=== PATIENT | male | born 1940 | race Caucasian/White ===

== ENCOUNTER → 2017-08-25 | Day surgery (SDC) | payer MEDICARE ==
[~2017-08-25] MED LIST: Calcium Carbonate 500 MG Tab.Chew PO ONE; Propofol 200 MG/20 ML SDV IV ONE; Sodium Chloride 0.9% 500 ML IV SCH
--- NOTE | 2017-08-25 11:28 | OR ---
DATE OF OPERATION: 08/25/2017 PREOPERATIVE DIAGNOSIS: 1. DYSPEPSIA. 2. ALTERED BOWEL HABITS. POSTOPERATIVE DIAGNOSIS: 1. DYSPEPSIA. 2. ALTERED BOWEL HABITS. SURGEON: John Heredia MD PROCEDURE: 1. FULL-LENGTH EGD WITH JUNIOR. 2. FULL-LENGTH COLONOSCOPY. ANESTHESIA: SENIOR DATA WAREHOUSE ARCHITECT due to GERD, history of gastric ulcer, and chronic alcohol abuse. COMPLICATIONS: None. SPECIMEN: Antral JUNIOR. FINDINGS: 1. Full-length EGD. 2. Status post a partial gastrectomy with Billroth anastomosis. 3. Small hiatal hernia with nonobstructing Schatzki ring. 4. Full-length colonoscopy. 5. Poor bowel prep. 6. Sigmoid diverticulosis. RECOMMENDATIONS: Medical followup with Dr. Heredia in 2 weeks. INDICATIONS: The patient was in for a physical, admits to chronic dyspepsia with a history of peptic ulcer disease. He has also been having altered bowel habits in the form of diarrhea. We recommended upper and lower endoscopy. DESCRIPTION OF PROCEDURE: The patient was prepped and draped, placed in the left lateral decubitus position. A lubricated Olympus gastroscope was inserted over a bit, and easily intubated in the esophagus. Esophageal lining was benign in its entire course. The Z-line was crisp around 37 cm. Small hiatal hernia with Schatzki's ring, nonobstructing was noted. No distal esophagitis, stricturing, ulceration, or Keita's changes. The scope advanced into the stomach and the patient has a partial gastrectomy with a Billroth anastomosis. No sign of any anastomotic ulcers. The gastric lining itself is without any polyps, mass, ulceration, or bleeding sites. A CLOtest was obtained. Air was then suctioned from the stomach and the scope removed without complication. A lubricated Olympus colonoscope was then inserted and ultimately advanced to the cecum. The bowel prep was extremely poor. There was a lot of liquid particulate stool throughout the length of the colon. There were very few areas that were not stool covered. We were able to get to the cecum, irrigate, and visualize it as well as palpate and visualize the light in the right lower quadrant. Upon withdrawal, throughout the length of the colon, I could not see any definitive signs of polyps, mass, ulceration, or bleeding sites. No vascular abnormalities or signs of colitis. There were diverticula throughout the sigmoid colon. Severity was difficult to ascertain due to the amount of stool. The rectal vault appeared benign. Retroflexion showed no perianal lesions. Air was suctioned and the scope removed without complication. JONATAN/DAREN /[id number]
== END ==
LOC: CC.SDS 09:12
PROVIDERS: ATTEND Family Medicine
DX: K44.9 Diaphragmatic hernia without obstruction or gangrene (principal); K57.30 Diverticulosis of large intestine without perforation or abscess without bleeding; K22.2 Esophageal obstruction; Z90.3 Acquired absence of stomach [part of]; I10 Essential (primary) hypertension; G89.29 Other chronic pain; M54.5 Low back pain; Z87.891 Personal history of nicotine dependence; Z79.899 Other long term (current) drug therapy
CPT/HCPCS: 43235; 45378; 87081; A9270; J2704; J7040; 00740

== ENCOUNTER 2020-12-26 07:40 | Emergency (ER) | payer MEDICARE ==
[2020-12-26] MEDS ORDERED: Aspirin 81 MG Tab.Chew PO ONE (08:02)
[2020-12-26] MEDS ORDERED: Ondansetron 4 MG/2 ML SDV IVPUSH STA (08:03)
[2020-12-26] MEDS ORDERED: Morphine 2 MG/ML SYRINGE IVPUSH ONE (08:03)
--- NOTE | 2020-12-26 08:06 | EDM.PDOC ---
ED HPI GENERAL MEDICAL PROBLEM - General Chief Complaint: Chest Pain Stated Complaint: chest pain Time Seen by Provider: 12/26/20 07:52 Source of Information: Reports: Patient, Family (daughter) History Limitations: Reports: No Limitations - History of Present Illness INITIAL COMMENTS - FREE TEXT/NARRATIVE: This patient is a 80 year old male that presents to the ER with daughter at bedside. Patient reports that for the last 2 days he has had severe chest pain to the left upper chest. Patient reports he has also had shortness of breath. Patient reports that his shortness of breath is all the time, but worse when he walks, and lays flat. Daughter reports the patients hands and feet have been swelling more that past 2 days. The patient states "I think I need a stent". The patient and daughter both report the patient has not had stent history or cardiac surgeries or caths. Daughter reports patient had a cardiac stress test about 1 year ago and it was fine. Patient has history of HTN, stopped tobacco use years ago. Onset Date: 12/24/20 Duration: Day(s): (2) Location: Reports: Chest Quality: Reports: Sharp Severity: Severe Improves with: Reports: None Worsens with: Reports: None Associated Symptoms: Reports: Chest Pain, Shortness of Breath. Denies: Confusion, Cough, cough w sputum, Diaphoresis, Fever/Chills, Headaches, Loss of Appetite, Malaise, Nausea/Vomiting, Rash, Seizure, Syncope, Weakness Treatments SHOPFITTER: Reports: Other (see below) (Excedrin) - Related Data Allergies Allergy/AdvReac Type Severity Reaction Status Date / Time No Known Allergies Allergy Verified 12/26/20 09:31 Home Meds: Home Meds Iron,Carbonyl/Folic Acid/Mv-Mn [Active Fe Tablet] 1 each PO DAILY 08/24/17 [History] Lisinopril/Hydrochlorothiazide [Lisinopril-Hctz 10-12.5 mg Tab] 1 tab PO DAILY 08/24/17 [History] Multivitamin [Multi-Day Vitamins] 1 each PO DAILY 08/24/17 [History] Verapamil HCl [Verapamil Sr] 180 mg PO BID 08/24/17 [History] atenoloL [Atenolol] 100 mg PO DAILY 08/24/17 [History] Aspirin [Aspirin EC] 500 mg PO Q4HR PRN 11/21/19 [History] Calcium Carbonate [Tums] 1 each CHEW ASDIRECTED 11/21/19 [History] Fish Oil/[place]-3 Fatty Acids [Fish Oil 1,000 MG] 1,000 mg PO DAILY 11/21/19 [History] Omeprazole 20 mg PO DAILY 11/21/19 [History] Aspirin/Acetaminophen/Caffeine [Excedrin Extra Strength Caplet] 1 each PO PRN 12/26/20 [History] ED ROS GENERAL - Review of Systems Review Of Systems: See Below Constitutional: Reports: No Symptoms HEENT: Reports: No Symptoms Respiratory: Reports: Shortness of Breath. Denies: Wheezing, Pleuritic Chest Pain, Cough, Sputum, Hemoptysis Cardiovascular: Reports: Chest Pain, Dyspnea on Exertion, Orthopnea. Denies: Edema, Lightheadedness, Palpitations, Syncope Endocrine: Reports: No Symptoms GI/Abdominal: Reports: No Symptoms : Reports: No Symptoms Musculoskeletal: Reports: No Symptoms Skin: Reports: No Symptoms Neurological: Reports: No Symptoms Psychiatric: Reports: No Symptoms Hematologic/Lymphatic: Reports: No Symptoms Immunologic: Reports: No Symptoms ED EXAM, GENERAL - Physical Exam Exam: See Below Exam Limited By: No Limitations General Appearance: Alert, WD/WN, No Apparent Distress, Anxious Eye Exam: Bilateral Eye: Normal Inspection, PERRL Ears: Normal External Exam, Normal Canal, Hearing Grossly Normal, Normal TMs Ear Exam: Bilateral Ear: Auricle Normal, Canal Normal, TM normal Nose: Normal Inspection, Normal Mucosa, No Blood Throat/Mouth: Normal Inspection, Normal Lips, Normal Teeth, Normal Gums, Normal Oropharynx, Normal Voice, No Airway Compromise Head: Atraumatic, Normocephalic Neck: Normal Inspection, Supple, Non-Tender, Full Range of Motion Respiratory/Chest: No Respiratory Distress, Lungs Clear, Normal Breath Sounds, No Accessory Muscle Use, Chest Non-Tender Cardiovascular: Normal Peripheral Pulses, Regular Rate, Rhythm, No Edema, No Gallop, No JVD, No Rub, Systolic Murmur Peripheral Pulses: 2+: Radial (L), Radial (R), Posterior Tibial (L), Posterior Tibial (R) GI/Abdominal: Normal Bowel Sounds, Soft, Non-Tender, No Organomegaly, No Distention, No Mass, Pelvis Stable, Other (old surgical scar vertical) (Male) Exam: Deferred Rectal (Males) Exam: Deferred Back Exam: Normal Inspection, Full Range of Motion Extremities: Normal Range of Motion, Non-Tender, Normal Capillary Refill, Pedal Edema (+4 BLE) Neurological: Alert, Oriented, Normal Cognition, Normal Gait, No Motor/Sensory Deficits Psychiatric: Anxious Skin Exam: Warm, Dry, Intact, Normal Color, No Rash Lymphatic: No Adenopathy #1 Interpretation EKG Date: 12/26/20 Time: 07:44 Rhythm: NSR Rate (Beats/Min): 63 [place]: Normal P-Wave: Present QRS: Normal ST-T: Normal QT: Prolonged Comparison: Change From Previous EKG Course - Vital Signs Last Recorded V/S: Last Vital Signs Temp 97.9 F 12/26/20 08:00 Pulse 56 L 12/26/20 11:30 Resp 18 12/26/20 11:30 BP 150/84 H 12/26/20 11:30 Pulse Ox 98 12/26/20 11:30 - Orders/Labs/Meds Labs: Laboratory Tests 12/26/20 12/26/20 12/26/20 Range/Units 07:55 07:55 07:55 WBC 6.0 (5.0-10.0) 10^3/uL RBC 4.18 L (4.50-6.00) 10^6/uL Hgb 12.0 L (14.0-18.0) g/dL Hct 38.9 L (40.0-54.0) % MCV 93.1 (82.0-94.0) fL MCH 28.7 (27.0-32.0) pg MCHC 30.8 L (33.0-38.0) g/dL RDW Coeff of Patito 13.1 (11.0-15.0) % Plt Count 283 (150-400) 10^3/uL Neut % (Auto) 71.2 (35-85) % Lymph % (Auto) 15.9 (10-55) % [place] % (Auto) 10.4 (0-16) % Eos % (Auto) 2.2 (0-5) % Baso % (Auto) 0.3 (0-3) % Neut # (Auto) 4.24 (1.80-7.00) 10^3/uL Lymph # (Auto) 0.95 L (1.00-4.80) 10^3/uL [place] # (Auto) 0.62 (0.00-0.80) 10^3/uL Eos # (Auto) 0.13 (0.00-0.45) 10^3/uL Baso # (Auto) 0.02 10^3/uL PT 10.5 (9.7-12.3) SEC INR 0.96 (0.92-1.18) D-Dimer, Quantitative (0.00-0.50) Sodium 140 (136-145) mEq/L Potassium 2.9 L* D (3.5-5.0) mEq/L Chloride 102 (98-106) mEq/L Carbon Dioxide 36 H D (21-32) mmol/L BUN 15 D (7-18) mg/dL Creatinine 1.1 (0.7-1.3) mg/dL Est Cr Clr Drug Dosing 54.45 mL/min Estimated GFR (MDRD) > 60 (>=60) mL/min Glucose 102 H (75-99) mg/dL Calcium 8.4 (8.4-10.1) mg/dL Magnesium 2.3 (1.8-2.4) mg/dL Total Bilirubin 0.4 (0.0-1.0) mg/dL AST 32 (15-37) U/L ALT 56 (12-78) U/L Alkaline Phosphatase 124 H (46-116) U/L Lactate Dehydrogenase 240 H (100-190) U/L Creatine Kinase 261 H (35-232) U/L Troponin I 0.019 (0.00-0.06) ng/mL NT-Pro-B Natriuret Pep 1416 H (0-1000) pg/mL Total Protein 5.5 L (6.4-8.2) g/dL Albumin 2.6 L (3.4-5.0) g/dL Lipase 36 L (73-393) U/L 12/26/20 Range/Units 09:00 WBC (5.0-10.0) 10^3/uL RBC (4.50-6.00) 10^6/uL Hgb (14.0-18.0) g/dL Hct (40.0-54.0) % MCV (82.0-94.0) fL MCH (27.0-32.0) pg MCHC (33.0-38.0) g/dL RDW Coeff of Patito (11.0-15.0) % Plt Count (150-400) 10^3/uL Neut % (Auto) (35-85) % Lymph % (Auto) (10-55) % [place] % (Auto) (0-16) % Eos % (Auto) (0-5) % Baso % (Auto) (0-3) % Neut # (Auto) (1.80-7.00) 10^3/uL Lymph # (Auto) (1.00-4.80) 10^3/uL [place] # (Auto) (0.00-0.80) 10^3/uL Eos # (Auto) (0.00-0.45) 10^3/uL Baso # (Auto) 10^3/uL PT (9.7-12.3) SEC INR (0.92-1.18) D-Dimer, Quantitative 1.44 H (0.00-0.50) Sodium (136-145) mEq/L Potassium (3.5-5.0) mEq/L Chloride (98-106) mEq/L Carbon Dioxide (21-32) mmol/L BUN (7-18) mg/dL Creatinine (0.7-1.3) mg/dL Est Cr Clr Drug Dosing mL/min Estimated GFR (MDRD) (>=60) mL/min Glucose (75-99) mg/dL Calcium (8.4-10.1) mg/dL Magnesium (1.8-2.4) mg/dL Total Bilirubin (0.0-1.0) mg/dL AST (15-37) U/L ALT (12-78) U/L Alkaline Phosphatase (46-116) U/L Lactate Dehydrogenase (100-190) U/L Creatine Kinase (35-232) U/L Troponin I (0.00-0.06) ng/mL NT-Pro-B Natriuret Pep (0-1000) pg/mL Total Protein (6.4-8.2) g/dL Albumin (3.4-5.0) g/dL Lipase (73-393) U/L Meds: Medications Discontinued Medications Generic Name Dose Route Start Last Admin Trade Name Freq PRN Reason Stop Dose Admin Aspirin 324 mg 12/26/20 08:02 12/26/20 08:57 Aspirin 81 Mg Tab.Chew PO 12/26/20 08:03 324 mg ONETIME ONE Administration Atorvastatin Calcium 10 mg 12/26/20 10:08 12/26/20 10:47 Atorvastatin 10 Mg Tab PO 12/26/20 10:09 10 mg ONETIME ONE Administration Enoxaparin Sodium 100 mg 12/26/20 10:15 12/26/20 10:47 Enoxaparin 100 Mg/1 Ml Syringe SUBCUT 100 mg Q12H BRUCE Administration Furosemide 40 mg 12/26/20 09:37 12/26/20 09:45 Furosemide 40 Mg/4 Ml Vial IVPUSH 12/26/20 09:38 40 mg ONETIME ONE Administration Nitroglycerin/Dextrose 25 mg in 250 mls @ 6 mls/hr 12/26/20 09:45 12/26/20 11:19 Nitroglycerin 25 Mg/D5w 250 Ml IV 10 mcg/min TITRATE BRUCE 6 mls/hr Administration Protocol 10 MCG/MIN Sodium Chloride 500 mls @ 500 mls/hr 12/26/20 09:45 Normal Saline IV .BOLUS BRUCE Potassium Chloride 20 meq/ 100 mls @ 25 mls/hr 12/26/20 10:04 12/26/20 11:04 Premix IV 12/26/20 14:03 25 mls/hr ONETIME ONE Administration Iopamidol 100 ml 12/26/20 10:00 12/26/20 10:48 Iopamidol 755 Mg/Ml 100 Ml Bottle IVPUSH 12/26/20 10:01 100 ml ONETIME ONE Administration Morphine Sulfate 2 mg 12/26/20 08:03 12/26/20 08:55 Morphine 2 Mg/Ml Syringe IVPUSH 12/26/20 08:04 2 mg ONETIME ONE Administration Nitroglycerin 0.4 mg 12/26/20 08:03 12/26/20 09:28 Nitroglycerin 0.4 Mg Tab.Sl SL 0.4 mg Q5M PRN Administration Chest Pain Ondansetron HCl 4 mg 12/26/20 08:03 12/26/20 09:03 Ondansetron 4 Mg/2 Ml Sdv IVPUSH 12/26/20 08:04 4 mg NOW STA Administration Pantoprazole Sodium 40 mg 12/26/20 09:59 12/26/20 11:05 Pantoprazole 40 Mg Vial IVPUSH 12/26/20 10:00 40 mg ONETIME ONE Administration Potassium Chloride 40 meq 12/26/20 09:37 12/26/20 10:05 Potassium Chloride 10 Meq Tab.Er PO 12/26/20 09:38 40 meq ONETIME ONE Administration - Radiology Interpretation Free Text/Narrative:: CXR: The cardiac silhouette is normal in size. There is small left pleural effusion with mild associated atelectasis. The lungs are otherwise clear. No pneumothorax. - Re-Assessments/Exams Free Text/Narrative Re-Assessment/Exam: 12/26/20 08:21 Wells Criteria Score for PE: 0 12/26/20 09:10 Patient pain score after the Nitro and Morphine is now a 6/10. He was a 9/10 prior to administration of meds. Patient oxygen saturation is 86% on RA at this time. I have added a d-dimer. Patient placed on oxygen 2L NC. 12/26/20 09:20 RN reports patient was given 1 nitro, patient pain 6/10. Will be given the additional 2, 5 minute intervals if pain continues. Heart Score is 5. 12/26/20 09:46 NS given due to patient having a contrasted ct of the chest. I have discussed transfer with the patient and daughter, as well as all risk vs benefits, labs, results, further CTA chest. I have ordered the CTA of chest due to elevated d- dimer and his dyspnea. After 3 Nitro, patient pain is still 5/10. I ordered Nitro gtt due to nitro helping pain, but still having pain. Patient vitals stable. I have called to discuss transfer with [facility] At this time, patient is also getting CTA chest. 12/26/20 09:56 I have spoken to Dr. Good wastewater treatment engineer about this patient. He reports to admit to hospitalist. He request that I give the patient Lovenox 1mg/kg, Atorvastatin, and Protonix. I have ordered these for this patient. I then spoke to hospitalist Dr. Martino about this patient. He has agreed to accept the patient. He asked that I also give Potassium IV. I have ordered this as well. 12/26/20 10:37 I was informed by [facility] broadcast maintenance technician to come to radiology department. She reported there is no contrast showing on the ct result. She reports there was no pressure warning during the infusion of the contrast dye either. I evaluated the patient. I do not see at the IV site any swelling, pain, redness, heat. Patient denies any arm pain, IV pain. Will await radiologist result, inform [facility] of the results and lack of contrast. Will continue with patient transfer by [place] [facility]. Due to patient not getting contrast dye, I cancelled his NS fluid bolus. Departure - Departure Time of Disposition: 10:50 Disposition: DC/Tfer to [facility] 02 Reason for Transfer *Q: Other Condition: Fair Clinical Impression: Unstable angina, Hypokalemia Congestive heart failure Qualifiers: Heart failure type: unspecified Heart failure chronicity: acute on chronic Qualified Code(s): I50.9 - Heart failure, unspecified Referrals: John Heredia MD [Primary Care Provider] - Forms: ED Department Discharge - Assessment/Plan Plan: PLEASE SEE RN NOTE FOR PFS This patient is being transferred to [facility]. The risk vs benefits explained to the patient and daughter who have agreed. The risk of transfer are mvc, , worsening of pain, worsening of condition, increased shortness of breath, intubation, cardiac arrest. The risk of staying in [place] is , worsening of condition, no wastewater treatment engineer. The benefits of transfer are higher level of care, wastewater treatment engineer, cardiac intervention. The benefits of staying in [place] is close to home.
[2020-12-26 08:35] LABS: CHLORIDE,CL 102 mEq/L (98-106); SODIUM,NA 140 mEq/L (136-145)
[2020-12-26] MEDS: Nitroglycerin 0.4 MG Tab.SL SL PRN ×3 (08:52→09:28)
[2020-12-26] MEDS ORDERED: Furosemide 40 MG/4 ML VIAL IVPUSH ONE (09:37)
[2020-12-26] MEDS ORDERED: Potassium Chloride 10 MEQ Tab.ER PO ONE (09:37)
[2020-12-26] MEDS ORDERED: Nitroglycerin/D5W 25 MG/250 ML BOTTLE IV SCH (09:45)
[2020-12-26] MEDS ORDERED: Sodium Chloride 0.9% 500 ML IV SCH (09:45)
[2020-12-26] MEDS ORDERED: Pantoprazole 40 MG Vial IVPUSH ONE (09:59)
[2020-12-26] MEDS ORDERED: Iopamidol 755 Mg/ML 100 ML Bottle IVPUSH ONE (10:00)
[2020-12-26] MEDS ORDERED: Potassium Chloride 20 MEQ in Premix Bag 1 BAG IV ONE (10:04)
[2020-12-26] MEDS ORDERED: atorvaSTATin 10 MG Tab PO ONE (10:08)
[2020-12-26] MEDS ORDERED: Enoxaparin 100 MG/1 ML Syringe SUBCUT SCH (10:15)
[2020-12-26 11:54] VITALS: BP 150/84; PULSE 56
== END 2020-12-26 12:00 ==
LOC: CC.ED 07:40
DX: I11.0 Hypertensive heart disease with heart failure (principal); I50.9 Heart failure, unspecified; I20.0 Unstable angina; E87.6 Hypokalemia; Z79.82 Long term (current) use of aspirin; Z79.899 Other long term (current) drug therapy; Z87.891 Personal history of nicotine dependence
CPT/HCPCS: 36415; 71046; 71250; 80053; 82550; 83615; 83690; 83735; 83880; 84484; 85025; 85379; 85610; 93005; 93010; 96365; 96368; 96375; 99284; 99285-25; A9270-GY; C9113; J1650; J1940; J2270; J2405; J3480; J3490; J7040; Q9967

== ENCOUNTER 2022-02-20 14:44 | Emergency (ER) | payer MEDICARE ==
[2022-02-20] MEDS ORDERED: Sodium Chloride 0.9% 10 ML Syringe FLUSH PRN (15:16)
[2022-02-20 16:08] LABS: CHLORIDE,CL 99 mEq/L (98-106); SODIUM,NA 130 mEq/L (136-145)
[2022-02-20] MEDS: Sodium Chloride 0.9% 500 ML IV SCH (16:14)
[2022-02-20 16:17] LABS: CORONAVIRUS COVID-19 NAA NEGATIVE (NEGATIVE)
[2022-02-20] MEDS: Sodium Chloride 0.9% 1,000 ML IV ONE (17:19)
[2022-02-20] MEDS ORDERED: Glucagon,Human Recombinant 1 MG Vial IM PRN (18:05)
[2022-02-20] MEDS ORDERED: 50% Dextrose in Water 50 ML Syringe IVPUSH PRN (18:05)
[2022-02-20] MEDS: 50% Dextrose in Water 50 ML Syringe IVPUSH ONE (18:27)
[2022-02-20] MEDS: Calcium Gluconate 10% 1 GM/10 ML SDV IVPUSH ONE (18:33)
[2022-02-20] MEDS: Albuterol 0.083% 2.5 MG/3 ML Neb Soln NEB ONE (18:34)
[2022-02-20] MEDS: Insulin Regular, Human 100 Units/ML 3 ML Vial IV ONE ×2 (18:35)
[2022-02-20] MEDS: Sodium Bicarbonate 8.4% 50 MEQ/50 ML Syringe IVPUSH ONE (18:42)
[2022-02-20] MEDS: Sodium Bicarbonate 100 MEQ in Dextrose 5% in Water 1,000 ML IV ONE ×2 (19:25)
== END 2022-02-20 21:55 ==
LOC: CC.ED 14:44
DX: R10.32 Left lower quadrant pain (principal); E86.0 Dehydration; E87.5 Hyperkalemia; E87.1 Hypo-osmolality and hyponatremia; E87.8 Other disorders of electrolyte and fluid balance, not elsewhere classified; I10 Essential (primary) hypertension; Z79.82 Long term (current) use of aspirin; Z79.899 Other long term (current) drug therapy; Z20.822 Contact with and (suspected) exposure to COVID-19
CPT/HCPCS: 0240U; 36415; 71045; 71250; 74176; 80048; 80053; 81003; 82947; 83605; 83690; 83735; 83880; 84484; 85025; 85379; 85610; 86140; 87040; 93005; 96361; 96365; 96366; 96375; 96376; 99284; 99285-25; J0610; J1815-GY; J7030; J7040; J7060

== ENCOUNTER 2024-11-20 13:15 | Inpatient (IN) | payer MEDICARE ==
[2024-11-20] MEDS ORDERED: Ondansetron 4 MG/2 ML SDV IV PRN (13:22)
[2024-11-20] MEDS ORDERED: Ondansetron 4 MG Tab.DIS PO PRN (13:22)
[2024-11-20] MEDS ORDERED: Acetaminophen 325 MG Tab PO PRN (13:22)
[2024-11-20] MEDS ORDERED: Docusate Sodium 100 MG Cap PO PRN (13:22)
[2024-11-20] MEDS ORDERED: Polyethylene Glycol 3350 Powder 17 GM Packet PO PRN (13:22)
[2024-11-20] MEDS: Furosemide 40 MG/4 ML VIAL IVPUSH ONE (14:09)
[2024-11-20] MEDS: Sodium Chloride 0.9% 500 ML IV SCH (16:44)
[2024-11-21] MEDS: Pantoprazole 40 MG Tab.CR PO SCH (07:02)
[2024-11-21 07:21] LABS: BASOPHILS ABSOLUTE AUTO 0.02 10^3/uL (0.00-0.50); BASOPHILS PERCENT AUTO 0.3 % (0-1); EOSINOPHILS ABSOLUTE AUTO 0.02 10^3/uL (0.00-1.50); EOSINOPHILS PERCENT AUTO 0.3 % (0-6); HEMATOCRIT 44.1 % (42.0-52.0); HEMOGLOBIN 14.9 g/dL (14.0-18.0); IMMATURE GRAN ABSOLUTE AUTO 0.02 10^3/uL (0.00-0.49); IMMATURE GRAN PERCENT AUTO 0.3 % (0.0-4.9); LYMPHOCYTES ABSOLUTE AUTO 1.18 10^3/uL (0.60-5.00); LYMPHOCYTES PERCENT AUTO 16.5 % (24-44); MEAN CORPUSCULAR HEMOGLOBIN 29.8 pg (27.0-32.0); MEAN CORPUSCULAR HGB CONC 33.8 g/dL (32.0-36.0); MEAN CORPUSCULAR VOLUME 88.2 fL (83.0-97.0); MONOCYTES ABSOLUTE AUTO 0.49 10^3/uL (0.00-1.50); MONOCYTES PERCENT AUTO 6.8 % (0-10); NEUTROPHILS ABSOLUTE AUTO 5.44 x10^3/uL (1.80-8.00); NEUTROPHILS PERCENT AUTO 75.8 % (41-71); PLATELET COUNT,PLT 268 10^3/uL (150-400); WHITE BLOOD CELL COUNT,WBC 7.2 10^3/uL (4.0-11.0)
[2024-11-21 07:29] LABS: CALCIUM 7.7 mg/dL (8.4-10.1); CREATININE 1.7 mg/dL (0.7-1.3); MAGNESIUM 2.2 mg/dL (1.8-2.4)
[2024-11-21] MEDS: Enoxaparin 30 MG/0.3 ML Syringe SUBCUT SCH (08:15)
[2024-11-21] MEDS: Fish Oil/Omega-3 Fatty Acids 1 Gm Cap PO SCH (08:15)
[2024-11-21] MEDS: Furosemide 40 MG/4 ML VIAL IVPUSH SCH (08:16)
[2024-11-21] MEDS: Potassium Chloride 20 MEQ Tab.ER PO SCH ×2 (08:29→18:05)
[2024-11-22 07:33] LABS: BASOPHILS ABSOLUTE AUTO 0.01 10^3/uL (0.00-0.50); BASOPHILS PERCENT AUTO 0.2 % (0-1); EOSINOPHILS ABSOLUTE AUTO 0.02 10^3/uL (0.00-1.50); EOSINOPHILS PERCENT AUTO 0.3 % (0-6); HEMATOCRIT 44.1 % (42.0-52.0); HEMOGLOBIN 14.7 g/dL (14.0-18.0); IMMATURE GRAN ABSOLUTE AUTO 0.02 10^3/uL (0.00-0.49); IMMATURE GRAN PERCENT AUTO 0.3 % (0.0-4.9); LYMPHOCYTES ABSOLUTE AUTO 1.13 10^3/uL (0.60-5.00); MEAN CORPUSCULAR HEMOGLOBIN 29.9 pg (27.0-32.0); MEAN CORPUSCULAR HGB CONC 33.3 g/dL (32.0-36.0); MEAN CORPUSCULAR VOLUME 89.8 fL (83.0-97.0); MONOCYTES ABSOLUTE AUTO 0.59 10^3/uL (0.00-1.50); MONOCYTES PERCENT AUTO 9.4 % (0-10); NEUTROPHILS ABSOLUTE AUTO 4.52 x10^3/uL (1.80-8.00); NEUTROPHILS PERCENT AUTO 71.8 % (41-71); PLATELET COUNT,PLT 252 10^3/uL (150-400); RED BLOOD CELL COUNT 4.91 x10^6/uL (4.50-6.00); WHITE BLOOD CELL COUNT,WBC 6.3 10^3/uL (4.0-11.0)
[2024-11-22 07:58] LABS: ALBUMIN 2.6 g/dL (3.4-5.0); BILIRUBIN TOTAL 0.3 mg/dL (0.0-1.0); CALCIUM 8.2 mg/dL (8.4-10.1); CREATININE 1.5 mg/dL (0.7-1.3); EST CRCL DRUG DOSING (CG) 38.53 mL/min; POTASSIUM,K 3.8 mEq/L (3.5-5.0); PROTEIN TOTAL,TP 5.7 g/dL (6.4-8.2)
[2024-11-23 09:13] LABS: BASOPHILS ABSOLUTE AUTO 0.01 10^3/uL (0.00-0.50); BASOPHILS PERCENT AUTO 0.1 % (0-1); EOSINOPHILS ABSOLUTE AUTO 0.03 10^3/uL (0.00-1.50); EOSINOPHILS PERCENT AUTO 0.4 % (0-6); HEMATOCRIT 46.9 % (42.0-52.0); HEMOGLOBIN 15.3 g/dL (14.0-18.0); IMMATURE GRAN ABSOLUTE AUTO 0.03 10^3/uL (0.00-0.49); IMMATURE GRAN PERCENT AUTO 0.4 % (0.0-4.9); LYMPHOCYTES ABSOLUTE AUTO 1.16 10^3/uL (0.60-5.00); LYMPHOCYTES PERCENT AUTO 17.3 % (24-44); MEAN CORPUSCULAR HEMOGLOBIN 29.8 pg (27.0-32.0); MEAN CORPUSCULAR HGB CONC 32.6 g/dL (32.0-36.0); MEAN CORPUSCULAR VOLUME 91.2 fL (83.0-97.0); MONOCYTES PERCENT AUTO 7.5 % (0-10); NEUTROPHILS ABSOLUTE AUTO 4.97 x10^3/uL (1.80-8.00); NEUTROPHILS PERCENT AUTO 74.3 % (41-71); PLATELET COUNT,PLT 244 10^3/uL (150-400); RED BLOOD CELL COUNT 5.14 x10^6/uL (4.50-6.00); WHITE BLOOD CELL COUNT,WBC 6.7 10^3/uL (4.0-11.0)
[2024-11-23 09:28] LABS: ALANINE AMINOTRANSFERASE,ALT 31 U/L (12-78); ALBUMIN 2.9 g/dL (3.4-5.0); ALKALINE PHOSPHATASE 101 U/L (46-116); ASPARTATE AMNIOTRANSFERASE,AST 45 U/L (15-37); BILIRUBIN TOTAL 0.4 mg/dL (0.0-1.0); BLOOD UREA NITROGEN,BUN 24 mg/dL (7-18); CALCIUM 8.8 mg/dL (8.4-10.1); CARBON DIOXIDE,CO2 22 mmol/L (21-32); CHLORIDE,CL 108 mEq/L (98-106); CREATININE 1.5 mg/dL (0.7-1.3); EST CRCL DRUG DOSING (CG) 38.53 mL/min; GLUCOSE RANDOM 131 mg/dL (75-99); PROTEIN TOTAL,TP 6.4 g/dL (6.4-8.2); SODIUM,NA 143 mEq/L (136-145)
[2024-11-23 09:30] LABS: C-REACTIVE PROTEIN < 0.50 mg/dL (<=0.50); ESTIMATED GFR 46 mL/min (>=60)
[2024-11-24] MEDS ORDERED: Potassium Chloride 20 MEQ Tab.ER PO SCH (08:00)
== END 2024-11-23 15:12 | disposition swing bed (61) | DRG 292 ==
LOC: CC.MS 13:15 → UNDOADMIN 13:15 → CC.MS 13:22
PROVIDERS: ADMIT Nurse Practitioner; ATTEND Nurse Practitioner
DX: I13.0 Hypertensive heart and chronic kidney disease with heart failure and stage 1 through stage 4 chronic kidney disease, or unspecified chronic kidney disease (principal); N17.9 Acute kidney failure, unspecified; I50.9 Heart failure, unspecified; J30.9 Allergic rhinitis, unspecified; H54.7 Unspecified visual loss; F41.9 Anxiety disorder, unspecified; E87.6 Hypokalemia; N18.31 Chronic kidney disease, stage 3a; Z79.899 Other long term (current) drug therapy; Z90.49 Acquired absence of other specified parts of digestive tract; Z85.828 Personal history of other malignant neoplasm of skin
CPT/HCPCS: 36415; 80048; 80053; 83735; 85025; 86140; 93010; 97110-GP; 97161-GP; 99223; 99232; 99233; 99238; A9270-GY; J1650; J1940; J7040

== ENCOUNTER 2024-11-23 15:15 | Inpatient (IN) | payer MEDICARE ==
[2024-11-23] MEDS ORDERED: Polyethylene Glycol 3350 Powder 17 GM Packet PO PRN (16:49)
[2024-11-23] MEDS ORDERED: Acetaminophen 325 MG Tab PO PRN (16:49)
[2024-11-23] MEDS ORDERED: Sodium Chloride 0.9% 500 ML IV SCH (16:49)
[2024-11-23] MEDS ORDERED: Docusate Sodium 100 MG Cap PO PRN (16:49)
[2024-11-23] MEDS ORDERED: Ondansetron 4 MG Tab.DIS PO PRN (16:49)
[2024-11-23] MEDS ORDERED: Ondansetron 4 MG/2 ML SDV IV PRN (16:49)
[2024-11-23] MEDS: Furosemide 40 MG Tab PO SCH (17:15)
[2024-11-24] MEDS: Pantoprazole 40 MG Tab.CR PO SCH (07:46)
[2024-11-24] MEDS: Potassium Chloride 20 MEQ Tab.ER PO SCH (07:47)
[2024-11-24] MEDS: Enoxaparin 30 MG/0.3 ML Syringe SUBCUT SCH (07:47)
[2024-11-24] MEDS: Fish Oil/Omega-3 Fatty Acids 1 Gm Cap PO SCH (07:47)
[2024-11-24 08:00] LABS: BASOPHILS ABSOLUTE AUTO 0.01 10^3/uL (0.00-0.50); BASOPHILS PERCENT AUTO 0.1 % (0-1); EOSINOPHILS ABSOLUTE AUTO 0.06 10^3/uL (0.00-1.50); EOSINOPHILS PERCENT AUTO 0.9 % (0-6); HEMATOCRIT 44.9 % (42.0-52.0); HEMOGLOBIN 14.7 g/dL (14.0-18.0); IMMATURE GRAN ABSOLUTE AUTO 0.02 10^3/uL (0.00-0.49); IMMATURE GRAN PERCENT AUTO 0.3 % (0.0-4.9); LYMPHOCYTES ABSOLUTE AUTO 1.04 10^3/uL (0.60-5.00); LYMPHOCYTES PERCENT AUTO 15.1 % (24-44); MEAN CORPUSCULAR HGB CONC 32.7 g/dL (32.0-36.0); MEAN CORPUSCULAR VOLUME 91.6 fL (83.0-97.0); MONOCYTES ABSOLUTE AUTO 0.73 10^3/uL (0.00-1.50); MONOCYTES PERCENT AUTO 10.6 % (0-10); NEUTROPHILS ABSOLUTE AUTO 5.05 x10^3/uL (1.80-8.00); PLATELET COUNT,PLT 213 10^3/uL (150-400); WHITE BLOOD CELL COUNT,WBC 6.9 10^3/uL (4.0-11.0)
[2024-11-24 08:24] LABS: CALCIUM 8.6 mg/dL (8.4-10.1); CREATININE 1.3 mg/dL (0.7-1.3); EST CRCL DRUG DOSING (CG) 44.46 mL/min; POTASSIUM,K 5.3 mEq/L (3.5-5.0)
[2024-11-25 09:01] LABS: CALCIUM 8.7 mg/dL (8.4-10.1); CREATININE 1.2 mg/dL (0.7-1.3); EST CRCL DRUG DOSING (CG) 48.16 mL/min; POTASSIUM,K 5.3 mEq/L (3.5-5.0)
[2024-11-26 08:34] LABS: CALCIUM 8.5 mg/dL (8.4-10.1); EST CRCL DRUG DOSING (CG) 57.79 mL/min; POTASSIUM,K 4.2 mEq/L (3.5-5.0)
== END 2024-11-26 13:00 | disposition home health service (06) | DRG 948 ==
LOC: CC.MS 15:15 → UNDOADMIN 15:15 → CC.MS 16:51
PROVIDERS: ADMIT Nurse Practitioner Family; ATTEND Nurse Practitioner Family
DX: R53.1 Weakness (principal); N17.9 Acute kidney failure, unspecified; I13.0 Hypertensive heart and chronic kidney disease with heart failure and stage 1 through stage 4 chronic kidney disease, or unspecified chronic kidney disease; E87.6 Hypokalemia; N18.31 Chronic kidney disease, stage 3a; G89.29 Other chronic pain; M54.50 Low back pain, unspecified; F10.10 Alcohol abuse, uncomplicated; J30.9 Allergic rhinitis, unspecified; F32.A Depression, unspecified; I34.0 Nonrheumatic mitral (valve) insufficiency; K59.00 Constipation, unspecified; R79.89 Other specified abnormal findings of blood chemistry; Z79.82 Long term (current) use of aspirin; Z79.899 Other long term (current) drug therapy; Z85.46 Personal history of malignant neoplasm of prostate; Z87.891 Personal history of nicotine dependence
CPT/HCPCS: 36415; 80048; 84484; 85025; 93005; 97161-GP; A9270-GY; J1650